=== PATIENT | male | born 1965 | race Caucasian/White ===

== ENCOUNTER 2021-09-06 12:31 | Inpatient (IN) | payer MEDICARE, SELFPAY ==
[2021-09-06] VITALS (7 sets, daily range): BP systolic 119–151; BP diastolic 80–99; PULSE 95–124; RESP 18–20; TEMP 36.3–37; O2SAT 96–98; BMI 26.4; BMI 25.4
--- NOTE | 2021-09-06 13:07 | RAD_ITS ---
INDICATION: chest pain EXAMINATION/TECHNIQUE: X-RAY - XR Chest 1 View COMPARISON: None. FINDINGS: LINES/DEVICES: None. LUNGS: Prominence of the bronchovascular and interstitial lung markings visualized in bilateral lung garcia with subtle scattered areas of patchy airspace opacification seen, biapical pleural reaction is seen, suggestion of emphysematous changes in the peripheral lung garcia. Mild blunting of bilateral costophrenic angles is seen but no evidence of pleural effusion. No evidence of pneumothorax or parenchymal lung mass. MEDIASTINUM AND CARDIOVASCULAR STRUCTURES: Prominence of the cardiac mediastinal silhouette is visualized, this could be partially artifactual due to the poor inspiratory effort. BONES AND SOFT TISSUES: Mild degenerative bone changes are seen. RAD/Chest 1 View (Portable) IMPRESSION: Prominence of the bronchovascular interstitial lung markings visualized bilaterally, chronic interstitial lung disease versus Covid 19 disease versus congestion. Electronically Signed: Manish Weir MD at 13:43 EST Tel , Service support ,
--- NOTE | 2021-09-06 13:07 | EKG12_ITS ---
Test Reason : SUBSTANCE ABUSE Blood Pressure : / mmHG Vent. Rate : 095 BPM Atrial Rate : 095 BPM P-R Int : 162 ms QRS Dur : 086 ms QT Int : 358 ms P-R-T Axes : 034 001 006 degrees QTc Int : 449 ms Sinus rhythm with Fusion complexes Nonspecific T wave abnormality Abnormal ECG Confirmed by TOM CRUZ, PAWEL ([id number]), editor sound FREDDY VILLARREAL ([id number]) on 09/09/2021 9:12:55 AM Referred By: PL Confirmed By:PAWEL SANTOS MD
[2021-09-06] MEDS: Ondansetron 4 MG/2 ML Vial IV ×2 (13:22→14:57)
[2021-09-06] MEDS: 0.9% Normal Saline 1,000 ML 1000 ML IV (13:22)
--- NOTE | 2021-09-06 13:30 | EDS_ITS ---
HPI History of Present Illness Chief Complaint: Substance Abuse Informant: patient and spouse/S.O. Narrative Narrative: Patient is here for detox. He has a long history of alcoholism. If he does not drink he gets shaky weak and decreased energy. He has never had a seizure. He has been through detox but it has been a while. Patient also is detoxing from opiates. He states he was using 10 mg of day of oxycodone. He stopped this approximately 5 days ago. He has had some diarrhea since. He is also been drinking more alcohol since he stopped it. Triage reports that he said he just wants to go to sleep. He states since stopping the opiates he feels tired. He is not suicidal. Patient does admit to some chest discomfort. He describes it as a burning with a sour taste in his mouth. It is worse after he vomits. He does have a history of vomiting and then going right back to drinking. No blood in the stool or vomitus. He is able to eat and drink at times. Is hard to get from him how much he drinks a day. But generally has at least 1 bottle of liquor. I cannot get the exact size. It varies between 40 and 80 proof. [facility] Medical History (Updated 09/06/21 @ 16:[address] Dajuan Booth MD) Bipolar II disorder with rapid cycling Cocaine abuse ETOH abuse GERD (gastroesophageal reflux disease) Opioid abuse Home Medications omeprazole 40 mg PO DAILY 09/06/21 [History Last Taken Unknown] Allergy/AdvReac Type Severity Reaction Status Date / Time No Known Allergies Allergy Verified 09/06/21 12:36 Family History (Updated 09/06/21 @ 14:[address] Celina Lim MD) Mother Alzheimer disease Father Heart disease CHF (congestive heart failure) Hypertension Surgical History (Updated 09/06/21 @ 14:[address] Celina Lim MD) History of total right knee replacement S/P foot surgery, right Status post total hip replacement, bilateral Social History (Updated 09/06/21 @ 14:[address] Celina Lim MD) household members: spouse Smoking Status: Former smoker how long ago did patient quit smoking: Quit 2017, prior smoked since teen 1 ppd. alcohol intake: current details: Prior 1 pint/week, over last 5 days 1-2 pint daily. substance use type: opiates ROS ROS ED Constitutional Constitutional ED: Denies chills or fever(s) Eyes Eyes: Denies blurry vision ENT ENT ED: Denies rhinorrhea or sore throat Cardiovascular Cardiovascular: Reports chest pain; Denies palpitations Respiratory/Chest Respiratory/Chest: Denies cough or dyspnea Gastrointestinal Gastrointestinal: Reports diarrhea and vomiting; Denies abdominal pain, constipation, melena or nausea Genitourinary Genitourinary ED: Denies dysuria Musculoskeletal Musculoskeletal: Denies myalgias Integumentary Denies rash Neurologic Neurologic: Denies headache(s) or weakness Psychiatric Psychiatric: Denies suicidal thoughts Endocrine Endocrinology: Denies polydipsia or polyuria Allergic/Immunologic Allergic/Immunologic ED: Denies mouth swelling or urticaria EXAM Physical Exam Const Vital Signs: 09/06/21 12:33 09/06/21 12:51 Temperature 97.3 F L 97.5 F L Temperature Source Temporal Temporal Pulse Rate 124 H 124 H Respiratory Rate 18 20 H Blood Pressure 119/85 H 119/85 H Blood Pressure Mean 96 96 Blood Pressure Source Monitor Pulse Ox 98 Oxygen Delivery Method Room Air Positive well nourished and well developed General Appearance ED: well developed and NAD HEENT Reports moist mucous membranes Eyes General Eye ED: Negative for pale conjunctiva or scleral icterus Neck no JVD Chest Wall inspection of chest normal Resp normal respiratory effort and clear to auscultation bilaterally Effort and Inspection: Negative for pain with movement Auscultation: Negative for rales, rhonchi or wheezes Cardio regular rhythm; Negative for regular rate Rate: tachycardic GI normal to inspection, nondistended, normoactive bowel sounds Back/Spine no CVA tenderness Extremity normal to inspection General Extremety ED: Negative for edema or tenderness General Extremity: Negative for edema Neuro oriented x3 Sensorium / Orientation: alert Psych mental status grossly normal Skin no rashes or lesions noted MDM MDM MDM Narrative Medical decision making narrative: Patient's blood work show mild elevation of his white count. This could be from vomiting, demargination etc. Electrolytes showed some mildly decreased sodium and potassium. LFTs have a slight elevation likely from alcohol use. Lipase is 360. Ethanol is 90. Chest x-ray was read as some bronchovascular interstitial changes bilaterally. Patient's denying to me that he is having cough or dyspnea. He is a smoker and has somewhat of a chronic cough. We might be seeing these changes. We did add a Covid test which came back negative. Case was discussed with the hospitalist and the patient will be admitted. I think this patient's chest pain is a burning sensation as he describes it. This is likely reflux and that is what he thinks it is. His troponin is negative. His common about wanting to go to sleep was not suicidal statement. It was merely a statement stating that he feels like he needs to go to sleep since he stopped the oxycodone. I think he is medically cleared and appropriate for detox. Lab Data Attestation: I reviewed the patient's lab results. Labs: Laboratory Results - last 24 hr 09/06/21 09/06/21 09/06/21 13:20 13:20 13:20 WBC 15.6 H RBC 4.77 Hgb 13.1 Hct 38.8 L MCV 81.3 MCH 27.5 MCHC 33.8 RDW Std Deviation 41.7 RDW Coeff of Chris 14.6 Plt Count 274 MPV 9.1 Immature Gran % (Auto) 0.600 Neut % (Auto) 88.0 H Lymph % (Auto) 7.7 L [place] % (Auto) 3.5 Eos % (Auto) 0.1 Baso % (Auto) 0.1 Absolute Neuts (auto) 13.7 H Absolute Lymphs (auto) 1.20 Nucleated RBC % 0 Sodium 129 L Potassium 3.1 L Chloride 87 L Carbon Dioxide 21.0 Anion Gap 21 H BUN 14 Creatinine 1.36 H Estim Creat Clear Calc 64.98 Est GFR (MDRD) Af Amer 69 Est GFR (MDRD) Non-Af 57 L BUN/Creatinine Ratio 10.3 Glucose 95 Calcium 8.4 L Phosphorus Magnesium Total Bilirubin 1.00 AST 46 H ALT 23 Alkaline Phosphatase 174 H Troponin I High Sens 26 B-Natriuretic Peptide Total Protein 7.8 Albumin 3.0 L Globulin 4.8 H Albumin/Globulin Ratio 0.6 L Lipase 360 Ethyl Alcohol 90.0 09/06/21 09/06/21 13:20 13:20 WBC RBC Hgb Hct MCV MCH MCHC RDW Std Deviation RDW Coeff of Chris Plt Count MPV Immature Gran % (Auto) Neut % (Auto) Lymph % (Auto) [place] % (Auto) Eos % (Auto) Baso % (Auto) Absolute Neuts (auto) Absolute Lymphs (auto) Nucleated RBC % Sodium Potassium Chloride Carbon Dioxide Anion Gap BUN Creatinine Estim Creat Clear Calc Est GFR (MDRD) Af Amer Est GFR (MDRD) Non-Af BUN/Creatinine Ratio Glucose Calcium Phosphorus 3.0 Magnesium 1.7 Total Bilirubin AST ALT Alkaline Phosphatase Troponin I High Sens B-Natriuretic Peptide 35.8 Total Protein Albumin Globulin Albumin/Globulin Ratio Lipase Ethyl Alcohol Radiography Diagnostic Testing: Clinical Impression(s) from Imaging Studies Chest X-Ray 09/06/21 13:07 IMPRESSION: Prominence of the bronchovascular interstitial lung markings visualized bilaterally, chronic interstitial lung disease versus Covid 19 disease versus congestion. Electronically Signed: Manish Weir MD at 13:43 EST Tel , Service support , Discharge Plan Dx/Rx/DC Orders Clinical Impression: Opiate withdrawal, Alcohol withdrawal, Admitted to alcohol detoxification center Disposition Disposition: Acute Care Hospital [facility] Discharge Date/Time: 09/06/21 15:44
[2021-09-06 13:37] LABS: Absolute Neutrophil Count 13.7 X10^3/uL (2.0-7.7); Basophil# 0.02 X10^3/uL; Basophil% 0.1 % (0-1); Eosinophil# 0.01 X10^3/uL; Eosinophils% 0.1 % (0-5); Hematocrit 38.8 % (40-54); Hemoglobin 13.1 g/dL (13.0-16.5); Lymphocyte % 7.7 % (19-41); Mean Corp Hgb Conc 33.8 g/dL (32-36); Mean Corpuscular Hgb 27.5 pg (27.0-32.0); Mean Corpuscular Volume 81.3 fL (80-94); Mean Platelet Vol. 9.1 fl (6.2-12.0); Monocyte# 0.55 X10^3/uL; Monocyte% 3.5 % (0-10); NRBC Flagged by Analyzer 0 % (0-5); Neutrophil # 13.73 X10^3/uL (2.7-7.7); Platelet Count 274 K/mm3 (150-450); RBC Distribution Width CV 14.6 % (11.6-14.6); RBC Distribution Width SD 41.7 fl (35.1-43.9); Red Blood Count 4.77 M/mm3 (4.6-6.2); White Blood Count 15.6 K/mm3 (4.4-11.0)
[2021-09-06 13:53] LABS: ALB/GLOB Ratio 0.6 RATIO (0.9-2.4); AST(SGOT) 46 U/L (15-37); Alanine Aminotransfer ALT/SGPT 23 U/L (16-61); Alkaline Phosphatase 174 U/L (45-117); Anion Gap 21 (5-15); BUN 14 mg/dL (7-18); BUN/Creat Ratio 10.3 RATIO (10-20); Calcium,Total 8.4 mg/dL (8.5-10.1); Chloride 87 mmol/L (98-107); Creatinine, Serum 1.36 mg/dL (0.70-1.30); EST Glomerular Filtration Rate 57 mL/min (>60); Est Glom Filt Rate - Afr Amer 69 mL/min (>60); Estimated Creatinine Clearance 64.98 ml/min; Globulin 4.8 g/dL (2.2-4.2); Glucose 95 mg/dL (74-106); Lipase 360 U/L (73-393); Potassium 3.1 mmol/L (3.5-5.1); Protein, Total 7.8 g/dL (6.4-8.2); Sodium Level 129 mmol/L (136-145); Troponin-I HS 26 pg/mL (3.0-78.0)
--- NOTE | 2021-09-06 14:34 | PCM.HP.STD ---
HPI - General General Date of Admission: 09/06/21 Date of Service: 09/06/21 Chief Complaint: Acute Opiate, EtOH withdrawal. HPI Narrative The patient is a 56 y/o M w/ PMHx: GERD, Bipolar disorder, Former Tobacco use, Polysubstance abuse including Opiates, Cocaine and EtOH abuse who presents to the [facility] ED on 09/06/21 with presentation for alcohol and opiate withdrawal reporting that he had been through detox prior but is been quite a while since reporting shakiness, lethargy, fatigue as well as prior to this worsened alcohol intake secondary to his attempts to decrease his opiate usage reporting he had been taking 10 mg-20 mg oxycontin daily (reports not specifically for pain) noting he recently stopped this 5 days prior to current presentation with mild diarrhea since. He does report generalized weakness, fatigue and states that he has had an altered sense of taste and smell. He does report that he prior to stopping the daily opiate intake drank 1 pint weekly and currently he drinks at least 1-2 pints liquor daily between 40-80 proof. He reports his last drink earlier in the morning. He notes he was having midsternal burning sensation worse with emesis episodes and after oral intake attempts. He reports nausea and emesis ongoing x 1 week even before he altered his opiate/EtOH intake pattern. He notes occasional cough. No fever or chills. He reports having been vaccinated with [employer] in December 2019 but no booster. He reports that his has been feeling well. Work-up in the ED T 97.5, heart rate 124, BP 119/85, respiratory rate 18, 98% on room air, CBC with WC 15.6, hemoglobin 13.1, platelet 274 with left shift, CMP with sodium 129, potassium 3.1, chloride 87, anion gap 21, BUN/creatinine 14/1.36, total bilirubin 1, AST/LT 46/23, alk phos 174, high-sensitivity cardiac 26, lipase 360 otherwise not marked appearing hepatic profile, ethyl alcohol level 90, chest x-ray with prominence of bronchovascular interstitial lung markings bilaterally with questionable chronic insertional lung disease versus COVID-19 versus congestion. Pending COVID testing. [facility] Medical History (Updated 09/06/21 @ 14:[address] Celina Lim MD) Bipolar II disorder with rapid cycling Cocaine abuse ETOH abuse GERD (gastroesophageal reflux disease) Opioid abuse Home Medications omeprazole 40 mg PO DAILY 09/06/21 [History Last Taken Unknown] Allergy/AdvReac Type Severity Reaction Status Date / Time No Known Allergies Allergy Verified 09/06/21 12:36 Family History (Updated 09/06/21 @ 14:[address] Celina Lim MD) Mother Alzheimer disease Father Heart disease CHF (congestive heart failure) Hypertension Surgical History (Updated 09/06/21 @ 14:[address] Celina Lim MD) History of total right knee replacement S/P foot surgery, right Status post total hip replacement, bilateral Social History (Updated 09/06/21 @ 14:[address] Celina Lim MD) household members: spouse Smoking Status: Former smoker how long ago did patient quit smoking: Quit 2017, prior smoked since teen 1 ppd. alcohol intake: current details: Prior 1 pint/week, over last 5 days 1-2 pint daily. substance use type: opiates ROS ROS Narrative Admission Review of Systems: CONSTITUTIONAL: No weight loss, fever, chills, + weakness or fatigue. HEENT: + Sore throat, altered taste. Eyes: No visual loss, blurred vision, double vision or yellow sclerae. Ears, Nose, Throat: No hearing loss, sneezing. SKIN: No rash or itching, lesions, wounds. CARDIOVASCULAR: + Dyspepsia complaints, No palpitations, edema, orthopnea, syncopal events. RESPIRATORY: + Cough. No shortness of breath, marked sputum, wheezing, hemoptysis. GASTROINTESTINAL: + anorexia, nausea, vomiting, diarrhea, abdominal pain, No melena, BRBPR. GENITOURINARY: No dysuria, frequency, urgency or retention. NEUROLOGICAL: No headache, No dizziness, syncope, paralysis, ataxia, numbness or tingling in the extremities, focal weakness, change in bowel or bladder control, seizure. MUSCULOSKELETAL: + muscle, back pain, joint pain or stiffness. HEMATOLOGIC: No anemia, bleeding or bruising. LYMPHATICS: No enlarged nodes. No history of splenectomy. PSYCHIATRIC: + history of depression or anxiety/bipolar disorder. ENDOCRINOLOGIC: No reports of sweating, cold or heat intolerance. No polyuria or polydipsia. ALLERGIES: No history of asthma, hives, eczema or rhinitis. Vital Signs Vital Signs Vital Signs: 09/06/21 12:33 09/06/21 12:51 Temperature 97.3 F L 97.5 F L Temperature Source Temporal Temporal Pulse Rate 124 H 124 H Respiratory Rate 18 20 H Blood Pressure 119/85 H 119/85 H Blood Pressure Mean 96 96 Blood Pressure Source Monitor Pulse Ox 98 Oxygen Delivery Method Room Air Weight Weight: 195 lb Body Mass Index (BMI) 26.4 Physical Exam Narrative Physical Examination: General: Awake, alert, oriented x 3 and cooperative, seated upright in the ED bed, fatigued and ill-appearing, holding emesis bag, mildly increased respiratory rate especially following pulmonary exam. Skin: Normal color, normal turgor, no icterus, no cyanosis. HEENT: AT/NC, EOMI, PERRLA, moderately dry MM, no carotid bruits or JVD noted. Lungs: Mild diminished, greater bases, mildly increased respiratory rate but no evidence of any respiratory distress, crackles at the bases with no specific rales, rhonchi or wheezing, notes these findings have been chronic long-term. Heart: Tachycardic with regular rhythm; no gallop, rub audible. Abdomen: Soft, reports abdominal discomfort but no obvious tenderness upon palpation with no rebound or guarding, nondistended, mildly hyperactive bowel sounds, no obvious HSM. Extremities: No cyanosis, clubbing, or edema. Neurological: Patient awake, alert, oriented as noted, cognitive function intact; pupils equally reactive to light and accommodation, cranial nerves II-XII grossly normal, moving all 4 extremities, no focal deficits, strength moderately globally decreased secondary to acute presentation. Psychiatric: Affect appears fatigued, ill-appearing, holding emesis bag, no acute evidence of depressive or anxiety feelings. Results Lab / Micro Data Result Diagrams: 09/06/21 13:20 09/06/21 13:20 Labs: Laboratory Results - last 24 hr 09/06/21 13:20: WBC 15.6 H, RBC 4.77, Hgb 13.1, Hct 38.8 L, MCV 81.3, MCH 27.5, MCHC 33.8, RDW Std Deviation 41.7, RDW Coeff of Chris 14.6, Plt Count 274, MPV 9.1, Immature Gran % (Auto) 0.600, Neut % (Auto) 88.0 H, Lymph % (Auto) 7.7 L, [place] % (Auto) 3.5, Eos % (Auto) 0.1, Baso % (Auto) 0.1, Absolute Neuts (auto) 13.7 H, Absolute Lymphs (auto) 1.20, Nucleated RBC % 0 09/06/21 13:20: Sodium 129 L, Potassium 3.1 L, Chloride 87 L, Carbon Dioxide 21.0, Anion Gap 21 H, BUN 14, Creatinine 1.36 H, Estim Creat Clear Calc 64.98, Est GFR (MDRD) Af Amer 69, Est GFR (MDRD) Non-Af 57 L, BUN/Creatinine Ratio 10.3, Glucose 95, Calcium 8.4 L, Total Bilirubin 1.00, AST 46 H, ALT 23, Alkaline Phosphatase 174 H, Troponin I High Sens 26, Total Protein 7.8, Albumin 3.0 L, Globulin 4.8 H, Albumin/Globulin Ratio 0.6 L, Lipase 360 09/06/21 13:20: Ethyl Alcohol 90.0 Micro: Microbiology 09/06/21 13:58 Nasal Secretion SARS-CoV-2 Antigen (Rapid) - Final Radiology Impression Chest X-Ray 09/06/21 13:07 IMPRESSION: Prominence of the bronchovascular interstitial lung markings visualized bilaterally, chronic interstitial lung disease versus Covid 19 disease versus congestion. Electronically Signed: Manish Weir MD at 13:43 EST Tel , Service support , Assessment & Plan Assessment/Plan (1) Alcohol withdrawal: QUALIFIERS: Complication of substance-induced condition: uncomplicated Qualified Code(s): F10.230 - Alcohol dependence with withdrawal, uncomplicated (2) Opiate withdrawal: PLAN: The patient is a 56 y/o M w/ PMHx: GERD, Bipolar disorder, Former Tobacco use, Polysubstance abuse including Opiates, Cocaine and EtOH abuse who presents to the [facility] ED on 09/06/21 with presentation for alcohol and opiate withdrawal reporting that he had been through detox prior but is been quite a while since reporting shakiness, lethargy, fatigue as well as prior to this worsened alcohol intake secondary to his attempts to decrease his opiate usage reporting he had been taking 10 mg oxycodone daily and stop this 5 days prior to current presentation with mild diarrhea since. #1. Acute EtOH Withdrawal: Will admit to medical surgical floor, routine labs obtained in the ED upon presentation as noted. Given interest in sobriety, will initiate and continue on protocol with taper course of Phenobarbital, scheduled gabapentin for seizure prophylaxis, as needed Catapres, Bentyl, Vistaril, IV fluids, IV antiemetics, Tylenol as needed for pain. Will consult Case management for assistance for transition to next level of rehabilitation care. Mag, phos pending. Maintain on CIFL protocol concurrently. #2. Recent Acute Opiate Withdrawal: Patient without any opiates he reports for 5 days, given timeline he is weaned himself off already and discussed that additional usage of Subutex would likely only make him sedate and at this time would be unnecessary. Will have as needed tylenol, ibuprofen, bowel regimen, gabapentin, Bentyl, Vistaril, methocarbamol, clonidine, PRN nightly trazodone for insomnia, IV fluids, IV antiemetics. Once patient clinically improved and completion of taper nearing will plan consultation with case management for transition to next level of rehabilitation care. #3. Polysubstance Abuse, Chronic: We will obtain HIV and hepatitis panel given significant polysubstance which was discussed with patient use although does deny IV substance use. Patient currently not candidate for hep C treatment currently as needs to be clean, sober x 6 months, documented attendance NA or AA meetings, counseling and ongoing negative drug screens. #4. Abnormal chest x-ray: Chest x-ray with prominent bronchovascular interstitial lung markings bilaterally questionable chronic interstitial lung disease versus Covid versus possibly congestion. Given history of recent GI losses and labs lower suspicion for overload. BNP requested. Covid testing pending. Will continue judicious hydration given noted concurrent findings; however, may discontinue if concerns. If patient is Covid positive will obtain sputum cultures, respiratory viral panel and urine antigens, will obtain D-dimer, procalcitonin, CRP, CPK, Ferritin, LDH, trop and BNP per Covid panel protocol, continue supportive care including q 2 hour turning including prone given no prone bed availability and judicious hydration, closely monitor for worsening status for ARDS and multiorgan failure, given no evidence of hypoxia upon presentation will defer immediate initiation of Decadron or remdesivir especially given unclear timeline. Patient does report that he has had chronic crackles at the bases long-term and was supposed to have an outpatient CT but failed to have this done, certainly could have chronic interstitial disease. #5. Leukocytosis, unclear etiology: Admission CBC with WBC 15.6 with left shift, potentially secondary to acute presentation with dehydration, will continue judicious hydration and repeat CBC in AM. #6. Hyponatremia, suspect acute on chronic, hypovolemic with recent GI losses: Sodium 129, chloride 87, will judiciously hydrate, repeat CMP in AM. #7. Hypokalemia: Admission K+ 3.1, magnesium level requested, supplementation given, repeat level in AM. #8. Metabolic acidosis, suspected secondary to alcoholism: Possibly also dehydration, AG 21, will continue treatment as noted above, repeat BMP this evening and CMP in AM. Of note no diabetic history and glucose is 95. #9. Chronic Kidney Disease Stage III, unclear subtype versus renal insufficiency versus potentially acute kidney injury, no comparison renal function prior: Admission BUN/Cr 14/1.36, baseline renal function unknown, continued treatment for suspected mild hypovolemia with recent GI loss history, repeat level in AM. #10. Bipolar disorder type II with rapid cycling: Likely contributes to patient acute presentation with alcohol and opiate abuse, not on any regimen, will benefit from counseling with 180 #11. GERD: Recent dyspepsia complaints as noted, will maintain on PPI. #12. DVT prophylaxis: SCDs, Lovenox. #13. CODE STATUS: Full code. Charges/Coding Visit Charges Inpatient E&M: 68975 Init Hosp L3
[2021-09-06 15:00] LABS: BNP,B-Type NATRIURETIC PEPTIDE 35.8 pg/mL (0-100)
[2021-09-06 15:04] LABS: Magnesium 1.7 mg/dL (1.6-2.6)
--- NOTE | 2021-09-06 15:09 | CM.ED ---
SOCIAL WORK Reason for Consult: Substance Abuse-requesting detox from alcohol and opiates Patient being admitted to [facility]. Addiction Therapist, Sharri updated on admission and will be in tomorrow to complete assessment. Plan: VALERIE Tinoco, SPLITTER MACHINE, TANKMAN
[2021-09-06] MEDS: Pantoprazole Sodium 40 MG Tablet PO ×2 (16:08→20:39)
[2021-09-06] MEDS: 0.9% Normal Saline 1,000 ML 100 ML IV (16:08)
[2021-09-06] MEDS: hydrOXYzine PAM 25 MG Capsule 50 MG PO (16:11)
[2021-09-06] MEDS: Phenobarbital 32.4 MG Tablet 64.8 MG PO ×2 (16:15→20:38)
[2021-09-06] MEDS: Potassium Chloride Oral Tablet 20 MEQ 40 MEQ PO (16:15)
[2021-09-06] MEDS: Mag Hydrox/Al Hydrox/Simeth 30 ML UDC PO (16:15)
[2021-09-06 17:00] LABS: HIV - WCH Non-Reactive (Nonreactive)
[2021-09-06] MEDS: proCHLORPERazine 10 MG/2 ML Vial IV (19:48)
[2021-09-06 20:07] LABS: Anion Gap 12 (5-15); BUN 15 mg/dL (7-18); BUN/Creat Ratio 13.6 RATIO (10-20); Calcium,Total 8.5 mg/dL (8.5-10.1); Chloride 94 mmol/L (98-107); EST Glomerular Filtration Rate 73 mL/min (>60); Est Glom Filt Rate - Afr Amer 88 mL/min (>60); Estimated Creatinine Clearance 80.34 ml/min; Glucose 111 mg/dL (74-106); Sodium Level 131 mmol/L (136-145)
[2021-09-06] MEDS: traZODone 100 MG Tablet PO (20:38)
[2021-09-07] VITALS (7 sets, daily range): BP systolic 118–142; BP diastolic 65–81; PULSE 82–115; RESP 16–18; TEMP 36.6–37.2; O2SAT 97–98
[2021-09-07] MEDS: Phenobarbital 32.4 MG Tablet 64.8 MG PO ×6 (00:23→19:55)
[2021-09-07] MEDS: 0.9% Normal Saline 1,000 ML 100 ML IV (01:48)
[2021-09-07 06:46] LABS: Absolute Lymphocyte Count 1.27 X10^3/uL (0.83-4.51); Absolute Neutrophil Count 9.1 X10^3/uL (2.0-7.7); Basophil# 0.01 X10^3/uL; Basophil% 0.1 % (0-1); Eosinophil# 0.01 X10^3/uL; Eosinophils% 0.1 % (0-5); Hematocrit 34.7 % (40-54); Hemoglobin 11.5 g/dL (13.0-16.5); Lymphocyte # 1.27 X10^3/ul (0.83-4.51); Lymphocyte % 11.8 % (19-41); Mean Corp Hgb Conc 33.1 g/dL (32-36); Mean Corpuscular Hgb 27.3 pg (27.0-32.0); Mean Corpuscular Volume 82.2 fL (80-94); Mean Platelet Vol. 9.6 fl (6.2-12.0); Monocyte% 2.8 % (0-10); NRBC Flagged by Analyzer 0 % (0-5); Neutrophil # 9.08 X10^3/uL (2.7-7.7); Neutrophil % 84.5 % (47-70); Platelet Count 222 K/mm3 (150-450); RBC Distribution Width CV 14.6 % (11.6-14.6); RBC Distribution Width SD 42.3 fl (35.1-43.9); Red Blood Count 4.22 M/mm3 (4.6-6.2); White Blood Count 10.7 K/mm3 (4.4-11.0)
[2021-09-07 07:17] LABS: ALB/GLOB Ratio 0.7 RATIO (0.9-2.4); AST(SGOT) 36 U/L (15-37); Alanine Aminotransfer ALT/SGPT 20 U/L (16-61); Albumin, Serum 2.8 g/dL (3.2-5.0); Alkaline Phosphatase 135 U/L (45-117); Anion Gap 10 (5-15); BUN 13 mg/dL (7-18); BUN/Creat Ratio 10.9 RATIO (10-20); Calcium,Total 7.8 mg/dL (8.5-10.1); Chloride 96 mmol/L (98-107); Creatinine, Serum 1.19 mg/dL (0.70-1.30); EST Glomerular Filtration Rate 67 mL/min (>60); Est Glom Filt Rate - Afr Amer 81 mL/min (>60); Estimated Creatinine Clearance 74.27 ml/min; Globulin 4.3 g/dL (2.2-4.2); Glucose 111 mg/dL (74-106); Potassium 2.9 mmol/L (3.5-5.1); Protein, Total 7.1 g/dL (6.4-8.2); Sodium Level 134 mmol/L (136-145)
[2021-09-07] MEDS: Thiamine Hydrochloride 100 MG Tablet PO (07:55)
[2021-09-07] MEDS: Mag Hydrox/Al Hydrox/Simeth 30 ML UDC PO ×2 (07:55→15:55)
[2021-09-07] MEDS: Folic Acid 1 MG Tablet PO (07:55)
[2021-09-07 07:56] LABS: Magnesium 2.3 mg/dL (1.6-2.6)
[2021-09-07] MEDS: Potassium Chloride 10mEq/100mL 10 MEQ/100 ML IV.SOLN. 100 MEQ IV BOLUS ×4 (08:21→11:55)
[2021-09-07] MEDS: Pantoprazole Sodium 40 MG Tablet PO ×2 (11:07→19:54)
[2021-09-07] MEDS: Enoxaparin 40 MG/0.4 ML Syringe SC (11:08)
--- NOTE | 2021-09-07 11:11 | ADDICTION ---
This technical report writer met with PT to conduct ASAM, MSE, AUDIT, DUDIT assessments and to plan for d/c. PT A+Ox4 and participated actively. All assessments completed, faxed to [facility] and placed in PT's chart. PT plans to f/u with individual counselor at [facility] for follow-up counseling services. PT did not indicate a need for transportation post d/c from [facility].
--- NOTE | 2021-09-07 11:48 | PN.HOSP_ITS ---
Subjective Subjective Patient seen and examined. He had no active complaints. Review of systems otherwise negative. He has remained hemodynamically stable. Potassium is low today at 2.9. Objective Data Objective Data Vital Signs: Vital Signs Temp Pulse Resp BP Pulse Ox 98.5 F 84 18 128/69 H 98 09/07/21 08:00 09/07/21 08:00 09/07/21 08:00 09/07/21 08:00 09/07/21 08:00 Oxygen Delivery Method Room Air Weight: 187 lb 6.4 oz Body Mass Index (BMI) 25.4 Intake & Output: Intake and Output for Last 24 Hours 09/05/21 09/06/21 09/07/21 23:59 23:59 23:59 Intake Total 1700 / 1700 1166.67 / 1166.67 Balance 1700 / 1700 1166.67 / 1166.67 Lab / Micro Data Result Diagrams: 09/07/21 06:15 09/07/21 06:15 Labs: Laboratory Results - last 24 hr 09/06/21 13:20: WBC 15.6 H, RBC 4.77, Hgb 13.1, Hct 38.8 L, MCV 81.3, MCH 27.5, MCHC 33.8, RDW Std Deviation 41.7, RDW Coeff of Chris 14.6, Plt Count 274, MPV 9.1, Immature Gran % (Auto) 0.600, Neut % (Auto) 88.0 H, Lymph % (Auto) 7.7 L, Todd % (Auto) 3.5, Eos % (Auto) 0.1, Baso % (Auto) 0.1, Absolute Neuts (auto) 13.7 H, Absolute Lymphs (auto) 1.20, Nucleated RBC % 0 09/06/21 13:20: Sodium 129 L, Potassium 3.1 L, Chloride 87 L, Carbon Dioxide 21.0, Anion Gap 21 H, BUN 14, Creatinine 1.36 H, Estim Creat Clear Calc 64.98, Est GFR (MDRD) Af Amer 69, Est GFR (MDRD) Non-Af 57 L, BUN/Creatinine Ratio 10.3, Glucose 95, Calcium 8.4 L, Total Bilirubin 1.00, AST 46 H, ALT 23, A lkaline Phosphatase 174 H, Troponin I High Sens 26, Total Protein 7.8, Albumin 3.0 L, Globulin 4.8 H, Albumin/Globulin Ratio 0.6 L, Lipase 360 09/06/21 13:20: Ethyl Alcohol 90.0 09/06/21 13:20: Phosphorus 3.0, Magnesium 1.7 09/06/21 13:20: B-Natriuretic Peptide 35.8 09/06/21 15:39: COVID-19 (MARCELLE) Not Detected 09/06/21 16:01: HIV 1&2 Antibody Non-Reactive 09/06/21 19:25: Sodium 131 L, Potassium 3.0 L, Chloride 94 L, Carbon Dioxide 25.0, Anion Gap 12, BUN 15, Creatinine 1.10, Estim Creat Clear Calc 80.34, Est GFR (MDRD) Af Amer 88, Est GFR (MDRD) Non-Af 73, BUN/Creatinine Ratio 13.6, Glucose 111 H, Calcium 8.5 09/07/21 06:15: WBC 10.7, RBC 4.22 L, Hgb 11.5 L, Hct 34.7 L, MCV 82.2, MCH 27.3, MCHC 33.1, RDW Std Deviation 42.3, RDW Coeff of Chris 14.6, Plt Count 222, MPV 9.6, Immature Gran % (Auto) 0.700, Neut % (Auto) 84.5 H, Lymph % (Auto) 11.8 L, Todd % (Auto) 2.8, Eos % (Auto) 0.1, Baso % (Auto) 0.1, Absolute Neuts (auto) 9.1 H, Absolute Lymphs (auto) 1.27, Nucleated RBC % 0 09/07/21 06:15: Sodium 134 L, Potassium 2.9 L, Chloride 96 L, Carbon Dioxide 28.0, Anion Gap 10, BUN 13, Creatinine 1.19, Estim Creat Clear Calc 74.27, Est GFR (MDRD) Af Amer 81, Est GFR (MDRD) Non-Af 67, BUN/Creatinine Ratio 10.9, Glucose 111 H, Calcium 7.8 L, Total Bilirubin 0.80, AST 36, ALT 20, Alkaline Phosphatase 135 H, Total Protein 7.1, Albumin 2.8 L, Globulin 4.3 H, Albumin/Globulin Ratio 0.7 L 09/07/21 06:15: Magnesium 2.3 Micro: Microbiology 09/06/21 13:58 Nasal Secretion SARS-CoV-2 Antigen (Rapid) - Final Radiography Diagnostic Testing: Radiology Impression Chest X-Ray 09/06/21 13:07 IMPRESSION: Prominence of the bronchovascular interstitial lung markings visualized bilaterally, chronic interstitial lung disease versus Covid 19 disease versus congestion. Electronically Signed: Manish Weir MD at 13:43 EST Tel , Service support , Assessment & Plan Assessment/Plan (1) Opiate withdrawal: (2) Alcohol withdrawal: QUALIFIERS: Complication of substance-induced condition: uncomplicated Qualified Code(s): F10.230 - Alcohol dependence with withdrawal, uncomplicated PLAN: #Acute alcohol withdrawal * On alcohol withdrawal protocol with phenobarbital. * On adjunctive medications for supportive relief * Monitor CIWA score. * #Acute opioid withdrawal: * He says he had not had any opiates for about 5 days. * Subutex was held of to prevent excessive sedation as he is on phenobarbital. Adjunctive meds for supportive relief. * #Hypokalemia: Potassium is 2.9 today. Magnesium was 2.3. Would aggressively replace potassium and monitor. #Hyponatremia: Sodium was 129 on admission and is now 134. Will trend. #CKD stage III: Stable #GERD: On PPI DVT prophylaxis:low risk. Encourage ambulation Charges/Coding Visit Charges Inpatient E&M: 29736 Subs Hosp L2
[2021-09-07] MEDS: traZODone 100 MG Tablet PO (21:03)
[2021-09-08 00:11] VITALS: BP 129/86; PULSE 115; RESP 18; TEMP 37; O2SAT 94
[2021-09-08] MEDS: Phenobarbital 32.4 MG Tablet 64.8 MG PO ×6 (00:14→20:54)
[2021-09-08 04:05] VITALS: BP 130/85; PULSE 97; RESP 18; TEMP 37.2; O2SAT 95
[2021-09-08] MEDS: hydrOXYzine PAM 25 MG Capsule 50 MG PO ×3 (04:15→16:06)
[2021-09-08 06:07] LABS: Anion Gap 8 (5-15); BUN 11 mg/dL (7-18); BUN/Creat Ratio 10.1 RATIO (10-20); Calcium,Total 7.8 mg/dL (8.5-10.1); Chloride 98 mmol/L (98-107); Creatinine, Serum 1.09 mg/dL (0.70-1.30); EST Glomerular Filtration Rate 74 mL/min (>60); Est Glom Filt Rate - Afr Amer 89 mL/min (>60); Estimated Creatinine Clearance 81.08 ml/min; Glucose 93 mg/dL (74-106); Sodium Level 136 mmol/L (136-145)
[2021-09-08 06:07] LABS: HEPATITIS B SURFACE AG Negative (Negative); Hepatitis B Core Ab Total Negative (Negative); Hepatitis C Ab 0.1 s/co ratio (0.0-0.9)
[2021-09-08 08:20] VITALS: O2SAT 96
[2021-09-08] MEDS: Potassium Chloride Oral Tablet 20 MEQ 60 MEQ PO (08:26)
[2021-09-08] MEDS: Methocarbamol 750 MG Tablet 1500 MG PO ×2 (08:26→16:05)
[2021-09-08] MEDS: cloNIDine HCl 0.1 MG Tablet PO (08:27)
[2021-09-08] MEDS: Pantoprazole Sodium 40 MG Tablet PO ×2 (08:27→20:54)
[2021-09-08] MEDS: Enoxaparin 40 MG/0.4 ML Syringe SC (08:27)
[2021-09-08] MEDS: Mag Hydrox/Al Hydrox/Simeth 30 ML UDC PO (08:27)
[2021-09-08] MEDS: Folic Acid 1 MG Tablet PO (08:28)
[2021-09-08] MEDS: Thiamine Hydrochloride 100 MG Tablet PO (08:28)
[2021-09-08 08:44] VITALS: BP 123/84; PULSE 100; RESP 16; TEMP 37; O2SAT 98
[2021-09-08] MEDS: Dicyclomine 10 MG Capsule 20 MG PO ×2 (08:52→16:06)
[2021-09-08 08:53] LABS: Hep B Surface Antibodies Non Reactive (.)
[2021-09-08 09:03] LABS: Amphetamine Urine VISTA NEGATIVE (<1000 ng/mL); Barbiturate Urine VISTA POSITIVE (< 200 ng/mL); Benzodiazepine Urine VISTA NEGATIVE (< 200 ng/mL); Cocaine Urine VISTA NEGATIVE (< 300 ng/mL); Ecstacy Urine VISTA POSITIVE (< 500 ng/mL); Methadone Urine VISTA NEGATIVE (< 300 ng/mL); PCP Urine VISTA NEGATIVE (< 25 ng/mL); THC Urine VISTA NEGATIVE (< 50 ng/mL); Vista UDS pH Range 7
--- NOTE | 2021-09-08 10:22 | ADDICTION ---
This worker met with pt to discuss his follow up plan, offer supportive counseling, relapse prevention and discuss future treatment options if needed. PT listed coping skills and sober supports he can reach out to when needed.
--- NOTE | 2021-09-08 10:24 | ADDICTION ---
PT mentioned several sores in his mouth and back of his throat that he reports may need looked at. This worker informed him she would pass along the information.
--- NOTE | 2021-09-08 11:13 | PN.HOSP_ITS ---
Subjective Subjective Patient seen and examined. He was complaining of epigastric burning pain from reflux. He has no other complaints and an uneventful night. Potassium is low at 3 today. Objective Data Objective Data Vital Signs: Vital Signs Temp Pulse Resp BP Pulse Ox 98.6 F 100 16 123/84 H 98 09/08/21 08:44 09/08/21 08:44 09/08/21 08:44 09/08/21 08:44 09/08/21 08:44 Oxygen Delivery Method Room Air Weight: 187 lb 6.4 oz Body Mass Index (BMI) 25.4 Intake & Output: Intake and Output for Last 24 Hours 09/06/21 09/07/21 09/08/21 23:59 23:59 23:59 Intake Total 1700 / 1700 4216.67 / 4716.67 500 / 500 Output Total 500 / 500 Balance 1700 / 1700 3716.67 / 4216.67 500 / 500 Lab / Micro Data Result Diagrams: 09/07/21 06:15 09/08/21 05:10 Labs: Laboratory Results - last 24 hr 09/07/21 06:15: Hep Bs Antigen Negative, Hep Bs Antibody Non Reactive, Hep B Core Total Ab Negative, Hepatitis C Antibody 0.1, Hep C Ab Comment Comment 09/08/21 05:10: Sodium 136, Potassium 3.0 L, Chloride 98, Carbon Dioxide 30.0, Anion Gap 8, BUN 11, Creatinine 1.09, Estim Creat Clear Calc 81.08, Est GFR (MDRD) Af Amer 89, Est GFR (MDRD) Non-Af 74, BUN/Creatinine Ratio 10.1, Glucose 93, Calcium 7.8 L 09/08/21 07:00: Urine Opiates Screen NEGATIVE, Urine Methadone Screen NEGATIVE, Ur Barbiturates Screen POSITIVE H, Ur Phencyclidine Scrn NEGATIVE, Ur Amphetamines Screen NEGATIVE, U Methamphetamin-MDMA POSITIVE H, U Bentley zodiazepines Scrn NEGATIVE, Urine Cocaine Screen NEGATIVE, U Cannabinoids Screen NEGATIVE, Ur Drug Screen Comment Micro: Microbiology 09/06/21 13:58 Nasal Secretion SARS-CoV-2 Antigen (Rapid) - Final Physical Exam Const alert, oriented x3 and no apparent distress Exam Limitations: no limitations HEENT head/scalp atraumatic and moist oral mucous membranes Head and Scalp: normocephalic Eyes PERRL, EOMs intact bilaterally and conjunctivae normal Neck no lymphadenopathy and supple Resp normal respiratory effort, no retractions, no use of accessory muscles and clear to auscultation bilaterally Cardio regular rate, regular rhythm, S1 normal heart sound, S2 normal heart sound and no murmurs GI normal to inspection, nondistended, normoactive bowel sounds and soft to palpation GI Narrative: mild epigastric tenderness, no guarding or rebound tenderness. Extremity normal to inspection, full ROM and no clubbing, cyanosis or edema Peripheral Pulses: Yes pulses 2+ throughout Skin no rashes or lesions noted Neuro oriented x3, CN's II-XII intact bilaterally and moves all extremities Sensorium / Orientation: awake and alert Psych affect normal Assessment & Plan Assessment/Plan (1) Opiate withdrawal: (2) Alcohol withdrawal: QUALIFIERS: Complication of substance-induced condition: uncomplicated Qualified Code(s): F10.230 - Alcohol dependence with withdrawal, uncomplicated PLAN: #Acute alcohol withdrawal * On alcohol withdrawal protocol with phenobarbital. * On adjunctive medications for supportive relief * Monitor CIWA score. * #Acute opioid withdrawal: * Subutex was held of to prevent excessive sedation as he is on phenobarbital. Adjunctive meds for supportive relief. * #Hypokalemia: Potassium is 3 today. will replace and trend. #Hyponatremia: Sodium was 129 on admission and is now 134. Will trend. #CKD stage III: Stable #GERD: On PPI DVT prophylaxis:low risk. Encourage ambulation Charges/Coding Visit Charges Inpatient E&M: 31411 Subs Hosp L2
[2021-09-08 14:00] VITALS: BP 95/64; PULSE 104; RESP 16; TEMP 36.9; O2SAT 96
[2021-09-08 20:49] VITALS: BP 105/62; PULSE 75; RESP 18; TEMP 37.1; O2SAT 98
[2021-09-08] MEDS: Gabapentin 300 MG Capsule PO (20:54)
[2021-09-09] MEDS: traZODone 100 MG Tablet PO (00:10)
[2021-09-09] MEDS: Phenobarbital 32.4 MG Tablet 64.8 MG PO ×3 (00:10→12:11)
[2021-09-09 05:39] VITALS: BP 106/76; PULSE 78; RESP 18; TEMP 36.7; O2SAT 97
[2021-09-09] MEDS: Pantoprazole Sodium 40 MG Tablet PO (07:30)
[2021-09-09] MEDS: Enoxaparin 40 MG/0.4 ML Syringe SC (07:30)
[2021-09-09] MEDS: Thiamine Hydrochloride 100 MG Tablet PO (07:30)
[2021-09-09] MEDS: Folic Acid 1 MG Tablet PO (07:30)
[2021-09-09] MEDS: hydrOXYzine PAM 25 MG Capsule 50 MG PO (07:35)
[2021-09-09] MEDS: Mag Hydrox/Al Hydrox/Simeth 30 ML UDC PO (07:35)
[2021-09-09 07:48] VITALS: BP 133/84; PULSE 88; RESP 16; TEMP 36.8; O2SAT 97; O2SAT 99
--- NOTE | 2021-09-09 11:33 | PCM.DC.SUM ---
Providers Date of Admission: 09/06/21 Primary Care Physician: Vik Kuhn [place] Reason For Visit: ETOH / OPIATE WITHDRAWAL Diagnosis Discharge Diagnosis (1) Opiate withdrawal: Status: Acute Code(s): F11.23 - Opioid dependence with withdrawal (2) Alcohol withdrawal: Status: Acute Code(s): F10.239 - Alcohol dependence with withdrawal, unspecified Qualifiers: Complication of substance-induced condition: uncomplicated Qualified Code(s): F10.230 - Alcohol dependence with withdrawal, uncomplicated Medications at Discharge Home Medications omeprazole 40 mg PO DAILY 09/06/21 Hospital Course Operations None Procedures None Summary of Care Provided Minutes Spent on Discharge: 45 Hospital Course: Patient is a 56 y/o male with a PMh as outlined who was admitted via the ED on 09/06/2021 with a complaint of shakiness, lethargy and fatigue as well. He had also been having increased alcohol intake and is attempts to decrease this opiate usage.He had associated nausea and vomiting. He was admitted to be managed for acute alcohol withdrawal and acute opiate withdrawal. Labs were significant for potassium of 3.1. His potassium was replenished. He tolerated a 3 days detox process with phenobarbital. HE wasnt placed on buprenorphine taper due to concerns about increased sedation whilst on buprenorphine and phenobarbital. He remained stable and was discharged on 09/09/2021. He is to follow up with his PCp in 1-2 weeks. Patient seen and examined. He had no concerns and felt well. Review of systems is otherwise negative. Home meds reviewed and reconciled. Physical Exam Const alert, oriented x3 and no apparent distress General Appearance: cooperative and comfortable Orientation / Consciousness: awake Exam Limitations: no limitations HEENT normocephalic, head/scalp atraumatic and moist oral mucous membranes Eyes PERRL, EOMs intact bilaterally and conjunctivae normal Neck no lymphadenopathy and supple Resp normal respiratory effort, no retractions, no use of accessory muscles and clear to auscultation bilaterally Cardio regular rate, regular rhythm, S1 normal heart sound, S2 normal heart sound and no murmurs GI normal to inspection, nondistended, normoactive bowel sounds and soft to palpation Extremity normal to inspection, full ROM and no clubbing, cyanosis or edema Skin no rashes or lesions noted Neuro oriented x3, CN's II-XII intact bilaterally and moves all extremities Sensorium / Orientation: awake and alert Psych affect normal Weight / BMI Weight Weight: 187 lb 6.4 oz Body Mass Index (BMI) 25.4 ABG / Lab / Microbiology Data Result Diagrams: 09/07/21 06:15 09/08/21 05:10 Microbiology: Microbiology 09/06/21 13:58 Nasal Secretion SARS-CoV-2 Antigen (Rapid) - Final D/C Instructions Discharge Diet: Low fat / Low cholesterol Discharge Activity: Return to Normal Activity Weight Bearing Status: Weight bearing as tolerated Call your doctor if you observe: Fever of 101 or Higher, Shortness of breath, Swelling in the ankles and Increased palpitations (irregular heartbeat) Meaningful Use Info Meaningful Use Diagnoses (Choose all that apply): None applicable Discharge Plan Admission Admit Date/Time: 09/06/21 14:29 Primary Reason for Your Visit: acute alcohol and opiate withdrawal Attending Provider: Eula Mercedes Primary Care Provider: Vik Alatorre Discharge Orders/Prescriptions Prescriptions: Continued omeprazole 40 mg Capsule,Delayed Release(Dr/Ec) 40 mg PO DAILY RF: 0 Referrals / Follow Up: Vik Alatorre [Primary Care Provider] - Within 2 Weeks Disposition Disposition (needs filled in before D/C Order can be placed): Home, Self Care Charges/Coding Visit Charges Inpatient E&M: 61258 Disch Hosp
--- NOTE | 2021-09-09 14:43 | ADDICTION ---
TW met with PT today to discuss his relapse prevention plan for once he leaves. He was given an Addiction Workbook to take home to help him with his recovery.
[2021-09-09 14:52] VITALS: BP 120/86; PULSE 87; RESP 16; TEMP 36.9; O2SAT 97
== END 2021-09-09 14:58 | disposition home or self-care (01) | DRG 897 ==
LOC: ED 14:37 → MS3 15:13
PROVIDERS: Admitting Provider Family Medicine; Emergency Provider Emergency Medicine; Visit Provider Student in an Organized Health Care Education/Training Program
DX: F11.23 Opioid dependence with withdrawal (principal); E87.2 Acidosis; E87.1 Hypo-osmolality and hyponatremia; F31.81 Bipolar II disorder; F10.239 Alcohol dependence with withdrawal, unspecified; Y90.4 Blood alcohol level of 80-99 mg/100 ml; E86.0 Dehydration; N18.30 Chronic kidney disease, stage 3 unspecified; E87.6 Hypokalemia; Z20.822 Contact with and (suspected) exposure to COVID-19; K21.9 Gastro-esophageal reflux disease without esophagitis; Z87.891 Personal history of nicotine dependence; Z96.651 Presence of right artificial knee joint; Z96.643 Presence of artificial hip joint, bilateral
CPT/HCPCS: 36415; 71045; 80048; 80053; 80307; 82077; 83690; 83735; 83880; 84100; 84484; 85025; 86703; 86704; 86705; 86706; 86707; 86803; 87340; 87350; 87426; 87635; 93005; 99284; J7030; J7040; U0005; A4216; J2405; U0003